=== PATIENT | male | born 2000 | race Native Hawaiian/Other Pacific Islander ===

== ENCOUNTER 2022-09-04 13:43 | Emergency (ER) | payer OTHER ==
--- NOTE | 2022-09-04 14:38 | XRAY ---
Indication: Pain following injury. Forehead laceration. Multiple contiguous axial images obtained through the head without contrast. Comparison: None Normal appearing brain parenchyma, ventricles, and bony calvarium. Partial opacification right mastoid air cells presumed inflammatory. Visualized paranasal sinuses are clear. Impression: Partial opacification right mastoid air cells presumed inflammatory. Remaining CT head without contrast exam is normal.
--- NOTE | 2022-09-04 14:40 | ERPHSYRPT ---
- History of Present Illness Time Seen by Provider: 09/04/22 13:50 Source: patient Exam Limitations: no limitations Patient Subjective Stated Complaint: C/O head injury. States he was walking down off of a porch and didn't realize there was a lower ledge from above. He hit his head and bridge of his nose off of the ledge. Triage Nursing Assessment: Patient ambulated back to ER without difficulties. No SOB. He is alert and oriented. Redness noted across bridge of nose. No skin alterations noted to forehead. Patient's eyes different; patient states he had a lazy eye correction so this is normal for him. Physician History: Patient was coming down off a little rope from a ladder and hit his face on a ledge he denies any specific loss of consciousness but says it did "jolt his eye teeth." He complains of some bleeding from the forehead and from the lateral side of the nose on the left. He denies any other injury or pain or problem Occurred: just prior to arrival Severity: moderate Head Injury Location: frontal Method of Injury: direct blow Loss of Consciousness: no loss of consciousness Associated Symptoms: headaches Allergies/Adverse Reactions: No Known Drug Allergies Allergy (Verified 09/04/22 13:47) Home Medications: No Reportable Medications [No Reported Medications] 09/04/22 [History] Hx Tetanus, Diphtheria Vaccination/Date Given: Yes Hx Influenza Vaccination/Date Given: No Hx Pneumococcal Vaccination/Date Given: No Immunizations Up to Date: Yes Travel Risk - International Travel Have you traveled outside of the country in past 3 weeks: No - Coronavirus Screening Are you exhibiting any of the following symptoms?: No Close contact with a COVID-19 positive Pt in past 14-21 Days: No - Vaccine Status Have you recieved a Covid-19 vaccination: No - Review of Systems Constitutional: No Fever, No Chills Eyes: No Symptoms Ears, Nose, & Throat: No Symptoms Respiratory: No Cough, No Dyspnea Cardiac: No Chest Pain, No Edema, No Syncope Abdominal/Gastrointestinal: No Abdominal Pain, No Nausea, No Vomiting, No Diarrhea Genitourinary Symptoms: No Dysuria Musculoskeletal: No Back Pain, No Neck Pain Skin: No Rash Neurological: No Dizziness, No Focal Weakness, No Sensory Changes Psychological: No Symptoms Endocrine: No Symptoms All Other Systems: Reviewed and Negative - Past Medical History Pertinent Past Medical History: Yes Musculoskeletal History: Fractures - Past Surgical History Past Surgical History: Yes Other Surgical History: 3 LEFT ARM SURGERIES, LAZY EYE CORRECTION - Social History Smoking Status: Never smoker Exposure to second hand smoke: No Drug Use: none - Nursing Vital Signs Nursing Vital Signs: Initial Vital Signs Temperature 97.6 F 09/04/22 13:43 Pulse Rate 74 09/04/22 13:43 Respiratory Rate 16 09/04/22 13:43 Blood Pressure 141/86 09/04/22 13:43 O2 Sat by Pulse Oximetry 98 09/04/22 13:43 Pain Scale Pain Intensity 5 - [place] Coma Score Best Eye Response ([place]): (4) open spontaneously Best Verbal Response ([place]): (5) oriented Best Motor Response ([place]): (6) obeys commands [place] Total: 15 - Physical Exam General Appearance: no apparent distress, alert Eye Exam: bilateral eye: PERRL, EOMI ENT Exam: airway nml Neck Exam: supple, trachea midline Cardiovascular/Respiratory Exam: chest non-tender, normal breath sounds, regular rate/rhythm Gastrointestinal/Abdominal Exam: soft, non tender, no distention Back Exam: normal inspection, No vertebral tenderness Extremity Exam: non-tender, normal range of motion, normal inspection Mental Status Exam: alert, oriented x 3, cooperative Motor/Sensory Exam: no motor deficit, no sensory deficit, CN II-XII intact Skin Exam: normal color, warm, dry, No rash SpO2 Interpretation: normal SpO2: 98 O2 Delivery: Room Air - Course Nursing assessment & vital signs reviewed: Yes - CT Exams Head CT Interpretation: Other (Results were reviewed no evidence of trauma) Ordered Tests: Active Orders 24 hr Category Date Time Status HEAD WITHOUT CONTRAST [CT] Stat Exams 09/04/22 14:11 Completed - Progress Progress: improved Progress Note: 09/04/22 14:52 Abrasions to the left forehead and nose were cleaned Medical Desision Making - Diagnostic Testing Radiological Interpretation: Reviewed by me - Risk of complications Minimal Risk: Minimal risk of morbidity - Departure Departure Disposition: Home Clinical Impression: Closed head injury, Facial abrasion Condition: Stable Critical Care Time: No Referrals: DOCTOR,NO FAMILY [Primary Care Provider] - Follow up/PCP as directed Instructions: Head Injury in Adults (DC)
[2022-09-04 14:50] VITALS: BP 115/72; PULSE 67
[2022-09-04 14:58] VITALS: O2SAT 98
== END 2022-09-04 14:59 | disposition home or self-care (01) ==
LOC: ED 13:43
DX: S09.90XA Unspecified injury of head, initial encounter (principal); S00.31XA Abrasion of nose, initial encounter; S00.81XA Abrasion of other part of head, initial encounter; W22.09XA Striking against other stationary object, initial encounter; Z28.310 Unvaccinated for COVID-19
CPT/HCPCS: 70450; 99283